=== PATIENT | male | born 1945 | race Caucasian/White ===

== ENCOUNTER 2022-04-23 13:25 | Emergency (ER) | payer MEDICARE, BC ==
[2022-04-23 14:21] LABS: #Basophils 0.1 thou/uL (0.0-0.2); #Lymphocytes 1.9 thou/uL (1.20-3.40); #Monocytes 0.5 thou/uL (0.11-0.59); #Neutrophils 5.9 thou/uL (1.40-6.50); %Basophils 0.7 % (0.0-1.0); %Eosinophils 0.5 % (0.0-10.0); %Lymphocytes 22.5 % (21.0-51.0); %Monocytes 5.9 % (0.0-10.0); %Neutrophils 70.4 % (42.0-75.0); Hemoglobin 15.1 g/dL (14.0-18.0); Mean Corpuscular HGB CONC 34.4 g/dL (32.0-36.0); Mean Corpuscular Hemoglobin 33.3 pg (27.0-31.0); Mean Corpuscular Volume 96.9 fL (78.0-98.0); Mean Platelet Volume 8.5 fL (7.4-10.4); Platelet Count 216 thou/uL (130-400); RBC Distribution Width 12.8 % (11.5-14.5); Red Blood Cell (RBC) Count 4.54 mill/uL (4.70-6.10); White Blood Cell (WBC) Count 8.4 thou/uL (4.8-10.8)
[2022-04-23 14:43] LABS: ALT (SGPT) 12 U/L (8-55); AST (SGOT) 15 U/L (5-34); Albumin 4.3 g/dL (3.4-4.8); Alkaline Phosphatase 75 U/L (40-110); Anion Gap 11 mmol/L (10-20); BUN (Urea Nitrogen) 13 mg/dL (8.4-25.7); Bilirubin, Total 0.9 mg/dL (0.2-1.2); Calc. Creatinine Clearance 0 mL/min (70-130); Calcium 9.3 mg/dL (7.8-10.44); Carbon Dioxide 27 mmol/L (23-31); Chloride 101 mmol/L (98-107); Estimated GFR 61; Globulin 3.5 g/dL (2.4-3.5); Glucose 92 mg/dL (83-110); Potassium 4.6 mmol/L (3.5-5.1); Protein, Total 7.8 g/dL (5.8-8.1); Sodium 134 mmol/L (136-145)
== END 2022-04-23 15:48 | disposition home or self-care (01) ==
LOC: ERS 13:25
DX: R00.1 Bradycardia, unspecified (principal); F17.210 Nicotine dependence, cigarettes, uncomplicated
CPT/HCPCS: 36415; 71045; 80053; 84484; 85025; 93005

== ENCOUNTER 2023-03-07 14:40 | Observation (INO) | payer MEDICARE, BC ==
[~2023-03-07 14:40] MED LIST: Iopamidol-370 76% 500 ML MDV (1 ML CHARGE) ONE
[2023-03-07 15:56] LABS: #Basophils 0.1 thou/uL (0.0-0.2); #Eosinphils 0.1 thou/uL (0.0-0.7); #Monocytes 0.8 thou/uL (0.11-0.59); #Neutrophils 6.2 thou/uL (1.40-6.50); %Basophils 0.8 % (0.0-1.0); %Lymphocytes 20.1 % (21.0-51.0); %Monocytes 9.2 % (0.0-10.0); %Neutrophils 68.6 % (42.0-75.0); Hematocrit 42.9 % (42.0-52.0); Hemoglobin 14.7 g/dL (14.0-18.0); Mean Corpuscular HGB CONC 34.3 g/dL (32.0-36.0); Mean Corpuscular Hemoglobin 32.2 pg (27.0-31.0); Mean Corpuscular Volume 93.9 fl (78.0-98.0); Mean Platelet Volume 10.3 fL (7.4-10.4); Platelet Count 223 10x3/uL (130-400); RBC Distribution Width 13.4 % (11.5-14.5); Red Blood Cell (RBC) Count 4.57 mill/uL (4.70-6.10)
[2023-03-07 16:19] LABS: ALT (SGPT) 14 U/L (8-55); AST (SGOT) 19 U/L (5-34); Albumin 3.9 g/dL (3.4-4.8); Alkaline Phosphatase 64 U/L (40-110); Anion Gap 11 mmol/L (10-20); BUN (Urea Nitrogen) 12 mg/dL (8.4-25.7); Bilirubin, Total 0.4 mg/dL (0.2-1.2); CK (CPK) 60 U/L (30-200); Calc. Creatinine Clearance 0 mL/min (70-130); Calcium 8.9 mg/dL (7.8-10.44); Carbon Dioxide 27 mmol/L (23-31); Chloride 99 mmol/L (98-107); Estimated GFR 51; Globulin 3.2 g/dL (2.4-3.5); Glucose 91 mg/dL (83-110); Potassium 4.1 mmol/L (3.5-5.1); Protein, Total 7.1 g/dL (5.8-8.1); Sodium 133 mmol/L (136-145)
[2023-03-07 16:52] LABS: Bacteria/HPF None Seen HPF (None Seen); Bilirubin Negative (Negative); Blood, Urine Negative (Negative); CAUTI Indications for Culture < 2yrs of age; Clarity Clear (Clear); Glucose, Urine (Dipstick) Normal (Negative); Ketone, Urine Negative (Negative); Leukocyte Negative Leu/uL (Negative); Nitrite Negative (Negative); Protein, Urine (Dipstick) Negative (Neg-Trace); RBC/HPF 0-3 HPF (0-3); Specific Gravity, Urine 1.011 (1.002-1.036); Squamous Epithelial 0-3 HPF (0-3); Urobilinogen Normal mg/dL (Less than 2); WBC/HPF 0-3 HPF (0-3); pH, Urine 5.5 (5.0-9.0)
[2023-03-07 16:53] LABS: Urine Culture Reflex Yes Yes
[2023-03-07 20:16] VITALS: BMI 22.4
[2023-03-07 21:03] LABS: Troponin I Less than 0.010 ng/mL (< 0.028)
[2023-03-07 23:36] LABS: Troponin I Less than 0.010 ng/mL (< 0.028)
[2023-03-08 05:41] LABS: #Basophils 0.1 thou/uL (0.0-0.2); #Eosinphils 0.1 thou/uL (0.0-0.7); #Monocytes 0.6 thou/uL (0.11-0.59); #Neutrophils 4.1 thou/uL (1.40-6.50); %Eosinophils 1.5 % (0.0-10.0); %Lymphocytes 32.3 % (21.0-51.0); %Monocytes 8.4 % (0.0-10.0); %Neutrophils 56.4 % (42.0-75.0); Hematocrit 43.6 % (42.0-52.0); Hemoglobin 15.1 g/dL (14.0-18.0); Mean Corpuscular HGB CONC 34.6 g/dL (32.0-36.0); Mean Corpuscular Hemoglobin 31.5 pg (27.0-31.0); Mean Platelet Volume 10.2 fL (7.4-10.4); Platelet Count 211 10x3/uL (130-400); White Blood Cell (WBC) Count 7.3 10x3/uL (4.8-10.8)
[2023-03-08 05:43] LABS: Mean Corpuscular Volume 90.8 fl (78.0-98.0)
[2023-03-08 06:06] LABS: Anion Gap 11 mmol/L (10-20); BUN (Urea Nitrogen) 11 mg/dL (8.4-25.7); Calc. Creatinine Clearance 47 mL/min (70-130); Carbon Dioxide 24 mmol/L (23-31); Chloride 102 mmol/L (98-107); Estimated GFR 55; Glucose 90 mg/dL (83-110); Potassium 4.2 mmol/L (3.5-5.1); Sodium 133 mmol/L (136-145)
[2023-03-08] MEDS ORDERED: Thiamine 100 MG TAB PO SCH (09:00)
[2023-03-08 12:39] VITALS: TEMP 98.1
[2023-03-08 14:37] VITALS: BP 104/55
== END 2023-03-08 16:43 | disposition home or self-care (01) ==
LOC: ERS 14:40 → 2NO 17:41
PROVIDERS: ADMIT Internal Medicine; ATTEND Family Medicine
DX: I95.1 Orthostatic hypotension (principal); I73.9 Peripheral vascular disease, unspecified; F10.90 Alcohol use, unspecified, uncomplicated; N40.1 Benign prostatic hyperplasia with lower urinary tract symptoms; N39.0 Urinary tract infection, site not specified; R41.82 Altered mental status, unspecified; I51.7 Cardiomegaly; J44.9 Chronic obstructive pulmonary disease, unspecified; I48.91 Unspecified atrial fibrillation; Z95.0 Presence of cardiac pacemaker; Z90.49 Acquired absence of other specified parts of digestive tract; Z79.82 Long term (current) use of aspirin; Z79.899 Other long term (current) drug therapy
CPT/HCPCS: 70450; 71045; 73130; 80048; 80053; 81001; 82533; 82550; 83605; 83880; 84484 ×2; 85025 ×2; 87086; 93005; 93880; 93923; 99285; G0378 ×3; 36415; Q9967

== ENCOUNTER 2023-06-01 10:30 | Inpatient (IN) | payer MEDICARE, BC ==
[2023-06-01 11:08] LABS: Hematocrit 44.6 % (38.8-50.0); Hemoglobin 14.7 g/dL (13.5-17.5); Mean Corpuscular Hemoglobin 30.8 pg (27.0-33.0); Mean Corpuscular Volume 93.3 fl (81.2-95.1); Mean Platelet Volume 10.6 fl (7.4-10.4); Platelet Count 262 10x3/uL (150-450); RBC Distribution Width 12.8 % (11.5-14.5); Red Blood Cell (RBC) Count 4.78 10x6/uL (4.32-5.72); White Blood Cell (WBC) Count 7.3 10x3/uL (3.5-10.5)
[2023-06-01 11:30] LABS: Anion Gap 16 mmol/L (10-20); BUN (Urea Nitrogen) 14 mg/dL (8.4-25.7); Calc. Creatinine Clearance 0 mL/min (70-130); Calcium 9.1 mg/dL (7.8-10.44); Carbon Dioxide 24 mmol/L (23-31); Chloride 102 mmol/L (98-107); Estimated GFR 53; Glucose 79 mg/dL (83-110); Sodium 137 mmol/L (136-145)
[2023-06-02] MEDS ORDERED: Phenylephrine 40 MG/NS 250 ML 250 ML ONE (13:37)
[2023-06-02] MEDS ORDERED: fentaNYL PF 100 MCG/2 ML SYRINGE ONE (13:37)
[2023-06-02] MEDS ORDERED: CEFAZOLIN 2 GM VIAL ONE (13:41)
[2023-06-02] MEDS ORDERED: Sodium Chloride 0.9% 100 ML ONE (13:41)
[2023-06-02] MEDS ORDERED: PROPOFOL 200 MG/20 ML VIAL ONE (13:50)
[2023-06-02] MEDS ORDERED: Ondansetron PF 4 MG/2 ML Vial ONE (13:50)
[2023-06-02] MEDS ORDERED: Protamine Sulfate 50 MG/5 ML VIAL ONE (13:50)
[2023-06-02] MEDS ORDERED: Rocuronium Bromide 10 MG/ML (10ML VIAL) ONE (13:50)
[2023-06-02] MEDS ORDERED: EPINEPHrine 1 MG/ML VIAL ONE (13:50)
[2023-06-02] MEDS ORDERED: Dexamethasone 20 MG/5 ML VIAL ONE (13:50)
[2023-06-02] MEDS ORDERED: Heparin 5,000 UNITS/ML VIAL ONE (13:50)
[2023-06-02] MEDS ORDERED: Lidocaine 1% PF 5 ML VIAL ONE (13:50)
[2023-06-02] MEDS ORDERED: Bupivacaine 0.25% HCL 30 ML VIAL ONE (13:51)
[2023-06-02] MEDS ORDERED: fentaNYL 50 mcg/mL 1 mL Vial ONE (16:19)
[2023-06-02] MEDS ORDERED: Lactated Ringer's 1,000 ML IV SCH (16:21)
[2023-06-02] MEDS ORDERED: traMADol HCl 50 MG TAB PO PRN (16:21)
[2023-06-02] MEDS ORDERED: fentaNYL 50 mcg/mL 1 mL Vial SLOW IVP PRN (16:21)
[2023-06-02] MEDS ORDERED: Acetaminophen 325 MG TAB PO PRN (16:21)
[2023-06-02] MEDS ORDERED: Ondansetron PF 4 MG/2 ML Vial IVP PRN (16:21)
[2023-06-02] MEDS ORDERED: Ipratropium/Albuterol 3 ML NEB NEB PRN (16:21)
[2023-06-02 19:14] VITALS: BMI 22.1
[2023-06-02] MEDS: Methenamine Hippurate 1 GM TAB PO SCH (21:24)
[2023-06-02] MEDS: CEFAZOLIN 2 GM in Sodium Chloride 0.9% 100 ML IVPB SCH (21:24)
[2023-06-02] MEDS: Atorvastatin Calcium 10 MG TAB PO SCH (21:24)
[2023-06-02] MEDS: traMADol HCl 50 MG TAB PO PRN (21:32)
[2023-06-03] MEDS ORDERED: Phenol 177 ML BOT PO PRN (01:18)
[2023-06-03] MEDS: CEFAZOLIN 2 GM in Sodium Chloride 0.9% 100 ML IVPB SCH ×2 (05:07→14:36)
[2023-06-03] MEDS: Aspirin Chewable 81 MG TAB PO SCH (09:48)
[2023-06-03] MEDS: Polyethylene Glycol 3350 17 GM Packet PO SCH (09:48)
[2023-06-03] MEDS: Methenamine Hippurate 1 GM TAB PO SCH ×2 (09:48→20:36)
[2023-06-03] MEDS: Magnesium Oxide 400 MG TAB PO SCH (09:48)
[2023-06-03] MEDS ORDERED: Methocarbamol 500 MG TAB PO PRN (16:47)
[2023-06-03] MEDS: Atorvastatin Calcium 10 MG TAB PO SCH (20:38)
[2023-06-04] MEDS: traMADol HCl 50 MG TAB PO PRN (02:15)
[2023-06-04] MEDS: Aspirin Chewable 81 MG TAB PO SCH (08:08)
[2023-06-04] MEDS: Polyethylene Glycol 3350 17 GM Packet PO SCH (08:08)
[2023-06-04] MEDS: Methenamine Hippurate 1 GM TAB PO SCH (08:08)
[2023-06-04] MEDS: Magnesium Oxide 400 MG TAB PO SCH (08:08)
[2023-06-04 11:38] VITALS: BP 126/72; TEMP 97.6
[2023-06-05] MEDS ORDERED: FLU VACC QS2023(65UP)/MF59C/PF 60 MCG/0.5 ML SYRINGE IM ONE (19:45)
== END 2023-06-04 11:45 | disposition home or self-care (01) | DRG 254 ==
LOC: SURG A 06-02 12:55
PROVIDERS: ADMIT Thoracic Surgery (Cardiothoracic Vascular Surgery); ATTEND Thoracic Surgery (Cardiothoracic Vascular Surgery)
PROC: 04CK0ZZ Extirpation of Matter from Right Femoral Artery, Open Approach (ICD-10-PCS; principal; 2023-06-02)
PROC: 04UK0KZ Supplement Right Femoral Artery with Nonautologous Tissue Substitute, Open Approach (ICD-10-PCS; 2023-06-02)
DX: I73.9 Peripheral vascular disease, unspecified (principal); Z79.899 Other long term (current) drug therapy; Z79.82 Long term (current) use of aspirin; Z95.0 Presence of cardiac pacemaker
CPT/HCPCS: 80048; 85027; 86850; 86900; 86901; C1713; J0171; J1100; J1644; J2405; J2704; J2720; J3010; J3490; S0020

== ENCOUNTER 2023-06-16 11:55 | Inpatient (IN) | payer MEDICARE, BC ==
[2023-06-16 14:03] LABS: #Basophils 0.1 thou/uL (0.0-0.2); #Eosinphils 0.3 thou/uL (0.0-0.7); #Monocytes 0.6 thou/uL (0.11-0.59); #Neutrophils 7.1 thou/uL (1.40-6.50); %Basophils 1.1 % (0.0-1.0); %Eosinophils 2.7 % (0.0-10.0); %Lymphocytes 20.7 % (21.0-51.0); %Monocytes 5.4 % (0.0-10.0); %Neutrophils 69.6 % (42.0-75.0); Hemoglobin 13.8 g/dL (14.0-18.0); Mean Corpuscular HGB CONC 33.7 g/dL (32.0-36.0); Mean Corpuscular Hemoglobin 31.5 pg (27.0-31.0); Mean Corpuscular Volume 93.6 fl (78.0-98.0); Mean Platelet Volume 10.6 fL (7.4-10.4); Platelet Count 279 10x3/uL (130-400); RBC Distribution Width 12.3 % (11.5-14.5); Red Blood Cell (RBC) Count 4.38 mill/uL (4.70-6.10); White Blood Cell (WBC) Count 10.2 10x3/uL (4.8-10.8)
[2023-06-16 14:21] LABS: Anion Gap 14 mmol/L (10-20); BUN (Urea Nitrogen) 13 mg/dL (8.4-25.7); Calc. Creatinine Clearance 0 mL/min (70-130); Carbon Dioxide 21 mmol/L (23-31); Chloride 105 mmol/L (98-107); Estimated GFR 57; Glucose 89 mg/dL (83-110); Potassium 5.2 mmol/L (3.5-5.1); Sodium 135 mmol/L (136-145)
[2023-06-16] MEDS ORDERED: Sodium Chloride 0.9% 100 ML ONE (14:35)
[2023-06-16] MEDS ORDERED: CEFAZOLIN 2 GM VIAL ONE (14:35)
[2023-06-16] MEDS ORDERED: PROPOFOL 20 ML ONE (14:44)
[2023-06-16] MEDS ORDERED: fentaNYL 50 mcg/mL 1 mL Vial ONE ×4 (14:57→18:04)
[2023-06-16] MEDS ORDERED: Ondansetron PF 4 MG/2 ML Vial ONE (15:10)
[2023-06-16] MEDS ORDERED: PROPOFOL 200 MG/20 ML VIAL ONE (15:10)
[2023-06-16] MEDS ORDERED: Lidocaine 1% PF 5 ML VIAL ONE (15:10)
[2023-06-16] MEDS ORDERED: fentaNYL PF 100 MCG/2 ML SYRINGE ONE (16:21)
[2023-06-16] MEDS ORDERED: Acetaminophen 325 MG TAB PO PRN (16:26)
[2023-06-16] MEDS: CEFAZOLIN 1 GM in Sodium Chloride 0.9% 100 ML IVPB SCH (22:23)
[2023-06-17 03:27] VITALS: BMI 21.5
[2023-06-17] MEDS: CEFAZOLIN 1 GM in Sodium Chloride 0.9% 100 ML IVPB SCH ×3 (06:13→22:25)
[2023-06-17] MEDS ORDERED: FLU VACC QS2023(65UP)/MF59C/PF 60 MCG/0.5 ML SYRINGE IM ONE (09:00)
[2023-06-17] MEDS: HYDROcodone/Acetaminophen 5/325 mg Tablet PO PRN ×2 (13:00→22:26)
[2023-06-18] MEDS: CEFAZOLIN 1 GM in Sodium Chloride 0.9% 100 ML IVPB SCH ×3 (05:27→22:38)
[2023-06-19] MEDS: CEFAZOLIN 1 GM in Sodium Chloride 0.9% 100 ML IVPB SCH ×2 (05:58→13:39)
[2023-06-19] MEDS ORDERED: Polyethylene Glycol 3350 17 GM Packet PO SCH (09:00)
[2023-06-19 09:40] VITALS: TEMP 98.1
[2023-06-19 13:13] VITALS: BP 100/69
== END 2023-06-19 16:51 | disposition home or self-care (01) | DRG 909 ==
LOC: SDC 11:55 → SURG A 16:28
PROVIDERS: ADMIT Thoracic Surgery (Cardiothoracic Vascular Surgery); ATTEND Thoracic Surgery (Cardiothoracic Vascular Surgery)
PROC: 0JDL0ZZ Extraction of Right Upper Leg Subcutaneous Tissue and Fascia, Open Approach (ICD-10-PCS; principal; 2023-06-16)
DX: T81.89XA Other complications of procedures, not elsewhere classified, initial encounter (principal); I89.8 Other specified noninfective disorders of lymphatic vessels and lymph nodes; I95.1 Orthostatic hypotension; F17.210 Nicotine dependence, cigarettes, uncomplicated; I70.219 Atherosclerosis of native arteries of extremities with intermittent claudication, unspecified extremity; J41.0 Simple chronic bronchitis; Z98.890 Other specified postprocedural states; Z79.82 Long term (current) use of aspirin; Z79.899 Other long term (current) drug therapy; Z80.9 Family history of malignant neoplasm, unspecified
CPT/HCPCS: 80048; 85025; 87070; 87205; J0690; J1650; J2405; J2704; J3010; J3490

== ENCOUNTER 2025-04-14 13:15 | Outpatient (CLI) | payer MEDICARE, BC | END 2025-04-14 13:16 | disposition home or self-care (01) | LOC: RAD 13:15 | PROVIDERS: ATTEND Internal Medicine | DX: R06.00 Dyspnea, unspecified (principal); J98.4 Other disorders of lung | CPT/HCPCS: 71046 ==